=== PATIENT | female | born 1940 | race Caucasian/White ===

== ENCOUNTER 2016-11-12 09:17 | Outpatient (CLI) | payer OTHER ==
[~2016-11-12 09:17] MED LIST: BENA40TA2 PO; CARV12.548 PO; CARV6.2554 PO; HYDR25TA4 PO; LOVA40TA75 PO
== END 2016-11-12 20:13 | disposition home or self-care (01) ==
LOC: SMA 09:17
PROVIDERS: ATTEND Internal Medicine
DX: R92.8 Other abnormal and inconclusive findings on diagnostic imaging of breast (principal); Z85.3 Personal history of malignant neoplasm of breast
CPT/HCPCS: G0204; G0206